=== PATIENT | male | born 1985 | race Two or more races ===

== ENCOUNTER 2017-10-06 13:00 | Emergency (ER) | payer SELFPAY ==
[~2017-10-06] VITALS: Ht 180.3 cm; Wt 79.4 kg
--- NOTE | 2017-10-06 13:01 | NUR ---
[id number], [id number] FROM [facility]: CHEST PAIN "06/29" PER PATIENT. AFTER ASA 162, NITRO x 2 PAIN /10. BS IN FIELD 124. RR IS EVEN AND UNLABORED WITH NAD NOTED. SKIN IS WARM AND DRY. AWAITING MD FOR EVAL.
--- NOTE | 2017-10-06 13:20 | NUR ---
PATIENT PULLED OUT THE IV, APPLIED 4X4 GAUZE TO SITE. NO BLEEDING AT THIS TIME.
--- NOTE | 2017-10-06 13:35 | NUR ---
PATIENT REFUSED BLOOD DRAW. SHANNON NEGRETE MADE AWARE.
[2017-10-06 14:29] VITALS: BP 132/89
--- NOTE | 2017-10-06 14:31 | NUR ---
Brent cam in [facility] - 10/06/17 at 1446 by CHUCK Patient discharged to home in stable condition. Written and verbal after care instructions given. Patient verbalizes understanding of instruction.
--- NOTE | 2017-10-06 14:35 | NUR ---
Patient does not wish to proceed with medical care recommended by Dr. PEDERSEN. Patient given information related to possible complications, up to and including , which could occur as a result of leaving the hospital at this time. Patient verbalizes understanding of risks involved due to leaving against medical advice. Patient has signed AMA form.
--- NOTE | 2017-10-06 14:36 | NUR ---
PATIENT REFUSED TO SIGN THE FORM AND REFUSED TO SIGN THE DISCHARGED PAPER. ER MD MADE AWARE. PATIENT WAS MAD BECAUSE HE REQUESTED THAT HE WILL BE TRANSPORTED TO [facility] INSTEAD OF [facility]. PATIENT STATES THAT HE CALLED 911 D/T PTSD AND FOR HIS "HEART". EXPLAINED TO THE PATIENT ABOUT THE CONSEQUENCES OF LEAVING THE HOSPITAL AND REFUSAL OF LAB DRAW AND TREATMENT.
== END 2017-10-06 14:52 | disposition left against medical advice (07) ==
LOC: ER 13:02
DX: R07.89 Other chest pain (principal); F32.9 Major depressive disorder, single episode, unspecified; I47.1 Supraventricular tachycardia; F43.10 Post-traumatic stress disorder, unspecified
CPT/HCPCS: 71045; 93005; 99284; A4606; Z7610